=== PATIENT | male | born 1980 | race Caucasian/White ===

== ENCOUNTER 2017-02-24 15:47 | Emergency (ER) | payer OTHER ==
[~2017-02-24] VITALS: Ht 185.4 cm; Wt 95.0 kg
[2017-02-24 15:47] VITALS: TEMP 36.8; Ht 185.4 cm; Wt 95.0 kg
[2017-02-24] MEDS ORDERED: XYLOCAINE 1%/SOD BICARB 20 ML VIAL INFIL ONE (16:00)
[2017-02-24] MEDS ORDERED: FURO-85 PO (16:48)
[2017-02-24] MEDS ORDERED: SPIR100T PO (16:48)
[2017-02-24] MEDS ORDERED: FOLI1TAB7 PO (16:48)
[2017-02-24] MEDS ORDERED: NADO20TA PO (16:48)
[2017-02-24] MEDS ORDERED: POTA20TA16 PO (16:48)
--- NOTE | 2017-02-24 16:55 | DIAGNOSTIC IMAGING REPORT ---
HEAD WITHOUT CONTRAST (CT) CLINICAL HISTORY: 36 years-old Male presenting with eval for bleed, fall. TECHNIQUE: Multidetector CT imaging of the head was performed without the use of intravenous contrast. IV contrast: None. A dose lowering technique was used consistent with the principles of ALARA (as low as reasonably achievable). COMPARISON: None. CT DOSE (mGy.cm): The estimated cumulative dose is 1095.69 mGy.cm. FINDINGS: Proofreader topogram: Unremarkable. Ventricles and sulci normal in size. Brain parenchyma normal in appearance with preserved ryan-white differentiation. No mass effect or midline shift. No hemorrhage or acute territorial infarct. No extra-axial fluid collection. Paranasal sinuses and mastoid air cells clear. Subgaleal hematoma noted at the right vertex. No subjacent osseous injury. IMPRESSION: 1. No acute intracranial pathology. 2. Subgaleal hematoma noted at the right vertex without subjacent osseous injury. Electronically signed by: John Paul Johnson M.D. 02/24/2017 4:54 PM Dictated Date/Time: 02/24/2017 4:52 PM
--- NOTE | 2017-02-24 16:58 | DIAGNOSTIC IMAGING REPORT ---
CERVICAL SPINE W/O CLINICAL HISTORY: 36 years-old Male presenting with eval for fx, fall, head bleed. TECHNIQUE: Multidetector CT of the cervical spine was performed without the use of intravenous contrast. IV contrast: None. A dose lowering technique was used consistent with the principles of ALARA (as low as reasonably achievable). COMPARISON: None. CT DOSE (mGy.cm): The estimated cumulative dose is 1095.69. FINDINGS: Schedule Maker topogram: Unremarkable. Normal cervical lordosis. Vertebral bodies maintain normal height and alignment. Focal disc osteophyte complex at C5-6. No significant osseous neural foraminal or spinal canal stenosis. No acute fracture or subluxation. Regional soft tissues normal. Lung apices clear. IMPRESSION: No acute osseous injury of the cervical spine. Focal degenerative change at C5-6. Electronically signed by: John Paul Johnson M.D. 02/24/2017 4:57 PM Dictated Date/Time: 02/24/2017 4:54 PM
[2017-02-24 17:21] VITALS: BP 125/78; PULSE 77; O2SAT 98
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
== END 2017-02-24 17:53 | disposition home or self-care (01) ==
LOC: EDBD 15:47 → C.EDB 15:50
DX: S06.9X9A Unspecified intracranial injury with loss of consciousness of unspecified duration, initial encounter (principal); S01.01XA Laceration without foreign body of scalp, initial encounter; W18.39XA Other fall on same level, initial encounter; W22.8XXA Striking against or struck by other objects, initial encounter; Y93.89 Activity, other specified; Y99.8 Other external cause status

== ENCOUNTER 2017-06-10 18:51 | Emergency (ER) | payer OTHER ==
[~2017-06-10] VITALS: Ht 185.4 cm; Wt 94.0 kg
[~2017-06-10 18:51] MED LIST: FOLI1TAB8 PO; FURO-85 PO; NADO20TA PO; POTA-639 PO; SPIR100T PO
[2017-06-10 19:02] VITALS: TEMP 36.9; Ht 185.4 cm; Wt 94.0 kg
[2017-06-10] MEDS ORDERED: LIDOCAINE/EPINEPHRINE 1% 20 ML VIAL INFIL ONE (19:30)
--- NOTE | 2017-06-10 19:32 | EMERGENCY ROOM VISIT NOTE ---
ED Visit Note First contact with patient: 19:05 CHIEF COMPLAINT: Toothache HISTORY OF PRESENT ILLNESS: This 36-year-old male patient presented to the emergency department by private vehicle with a progressive toothache for past 3- 4 weeks. The patient believes it is coming from right upper back molar. The pain states that he felt a "crack" in the tooth today and the pain is now steady and severe, radiates to the face. The patient saw a dentist 2 weeks ago , who told him he needed to have the tooth extracted and encouraged him to go to an oral surgeon in [place], however the patient states he did not wish to travel that far and has not set up an appointment for this. The dentist that he saw placed him on ibuprofen for pain and penicillin, the patient states he has 2 pills of penicillin left. He states he has been taking ibuprofen without relief and has also used Orajel without improvement. They rate their pain a 9/ 10, constant and aching/throbbing. Denies facial swelling, fevers/chills, neck pain or stiffness, headaches, vision changes, difficulty swallowing, difficulty breathing, tongue or throat swelling, chest pain, shortness of breath, nausea or vomiting, or rash. The patient denies any discharge from the mouth or bad taste in the mouth. REVIEW OF SYSTEMS: A 10 system review of systems was completed with positives and pertinent negatives listed in the HPI. ALLERGIES: No known allergies MEDICATIONS: Reviewed in chart PMH: Alcoholic liver cirrhosis SOCIAL HISTORY: Lives at home. Denies tobacco use. In remission for alcoholism for over 3 years. PHYSICAL EXAM: Vitals are noted on the nurse's note and reviewed by myself. Vital signs stable. Afebrile. GENERAL: Pleasant cooperative, in no acute distress, non-diaphoretic, well- developed well-nourished. MOUTH: The right upper third molar is noted to be broken off and carious. The gum is not swollen or tender around it, and there is not any discharge or signs of an abscess. The remainder of the pharynx and tonsils are without erythema, edema, or exudate. The airway is patent. There is no facial swelling, cervical or submandibular lymphadenopathy. The patient appears uncomfortable and in pain. The patient has overall good dental hygiene. EARS: External auditory canals clear, tympanic membranes pearly ryan without erythema or effusion bilaterally. HEART: Regular rate and rhythm, no murmur/gallops/rubs. Normal peripheral perfusion. No edema. LUNGS: Clear to auscultation in all lung shay, no wheezes, rhonchi, or crackles. Equal expansion bilaterally. ABDOMEN: Soft, nontender, nondistended with normal bowel sounds. NEURO: Alert and oriented 4, cranial nerves II through XII grossly intact, no focal deficits. Normal speech. Normal gait observed. ED COURSE: I examined the patient. Exam reveals a partially broken third right upper molar, there is no gingival swelling, redness, or evidence of periapical abscess. There is no cervical adenopathy, neck swelling, facial swelling or cellulitis. Patent airway. I offered the patient a dental block for his tooth pain, which he requests to have done. I discussed risks and benefits of performing a dental block and obtained verbal consent from the patient prior to perform the procedure. Using a 25-gauge 58 inch needle, a periapical block was performed of the right third molar using 1% buffered lidocaine with epinephrine. The patient reported almost immediate relief of his tooth pain. After tooth pain was improved, temporary cement solution was applied over the surface of the broken tooth. The patient tolerated the procedure well with no known complications. The patient was provided with contact information for Dr. Italia DMD for follow-up regarding tooth extraction. Patient was strongly encouraged to follow up with a dentist regarding extraction of his tooth. He was encouraged to continue taking his penicillin course until it is completed. Patient was also given strict return precautions should his symptoms worsen, he verbalized understanding. Patient was discharged home in stable condition and ambulatory. Medication Reconciliation: I attest that I have personally reviewed the patient' s current medication list. Blood pressure screening: The patient was found to have an elevated blood pressure, this was felt to be situational secondary to pain. Problem List Medical Problems: (1) Liver disease Status: Chronic Current/Historical Medications Scheduled Folic Acid (Folvite), 1 MG PO DAILY Furosemide (Lasix), 20 MG PO DAILY Ibuprofen (Advil), 800 MG PO PRN Nadolol (Corgard), 20 MG PO QPM Potassium Ext Rel (Klor-Con), 10 MEQ PO DAILY Spironolactone (Aldactone), 100 MG PO QAM Allergies Coded Allergies: No Known Allergies (Unverified , 02/24/17) Vital Signs Date Time Temp Pulse Resp B/P (MAP) Pulse Ox O2 Delivery O2 Flow Rate FiO2 06/10/17 20:18 59 18 142/88 98 06/10/17 19:02 36.9 71 16 159/96 99 Room Air Departure Information Impression Primary Impression: Pain, dental Additional Impression: Broken or cracked tooth, nontraumatic Dispostion Home / Self-Care Condition GOOD Referrals No Doctor, Assigned (PCP) Eriberto Echavarria D.M.D Patient Instructions ED Tooth Pain, My [facility] Additional Instructions You have been treated in the Emergency Department for Dental Pain. Finish taking your course of penicillin antibiotic until the medication is gone. You may continue to take ibuprofen 600 mg every 6 hours as needed for pain. You may also apply ice or warm compresses to the right side of your face for improved comfort. Refrain from smoking cigarettes or using chewing tobacco until you have been evaluated by your dentist. Keeping beverages lukewarm and consuming soft foods can also decrease your pain. You MUST seek evaluation of your dental pain by a dentist following your visit to the Emergency Department. You have been provided with contact information for Dr. Echavarria, who is a local dentist. Please call his office tomorrow to make an appointment as soon as possible for evaluation and management of your dental pain. Return to the emergency department if you develop the following symptoms: fever > 101.5, severe worsening pain, redness or swelling of your face or neck, foul drainage inside her mouth, difficulty swallowing or breathing, or any other concerns Work Instructions Return To Work: 2 days Problem Qualifiers
[2017-06-10] MEDS ORDERED: IBUP-1050 PO (19:39)
[2017-06-10 20:18] VITALS: BP 142/88; PULSE 59; O2SAT 98
== END 2017-06-10 20:19 | disposition home or self-care (01) ==
LOC: C.EDB 18:51 → C.EDD 20:19
DX: K08.89 Other specified disorders of teeth and supporting structures (principal); K03.81 Cracked tooth; K70.30 Alcoholic cirrhosis of liver without ascites; K76.9 Liver disease, unspecified; Z79.899 Other long term (current) drug therapy